=== PATIENT | female | born 1950 | race Caucasian/White ===

== ENCOUNTER 2019-09-11 14:14 | Observation (INO) | payer MEDICARE ==
[2019-09-11] MEDS ORDERED: SODIUM CHLORIDE 0.9% 1000ML 1,000 ML IV ONE ×2 (14:35→15:35)
[2019-09-11] MEDS ORDERED: IPRATROPIUM/ALBUTEROL SULFATE 3 ML SOLUTION IH ONE (14:49)
[2019-09-11 14:54] LABS: BASOPHILS % (AUTO) 0.2 % (0.0-5.0); EOSINOPHILS % (AUTO) 0.1 % (0.0-8.0); HEMATOCRIT 36.8 % (36-48); LYMPHOCYTES % (AUTO) 20.5 % (21.0-51.0); MEAN CORPUSCULAR HEMOGLOBIN 30.9 pg (27.0-33.0); MEAN CORPUSCULAR VOLUME 83.6 fL (79-99); MONOCYTES % (AUTO) 8.2 % (3.0-13.0); NEUTROPHILS % (AUTO) 70.6 % (40.0-77.0); PLATELET COUNT (AUTO) 255 K/uL (130-400); RED CELL DISTRIBUTION WIDTH 11.9 % (11.0-15.5); WHITE BLOOD COUNT (AUTO) 9.8 K/uL (4.8-10.8)
[2019-09-11 15:11] LABS: INR 0.99 (0.85-1.15); PARTIAL THROMBOPLASTIN TIME 29.4 SEC (26.3-35.5); PROTHROMBIN TIME 10.4 SEC (9.6-11.6)
[2019-09-11 15:13] LABS: ALBUMIN 3.3 g/dL (3.5-5.0); CREATININE 0.6 mg/dL (0.5-1.5); POTASSIUM 3.9 mmol/L (3.5-5.1); TOTAL PROTEIN, SERUM 7.3 g/dL (6.0-8.3)
[2019-09-11 15:33] LABS: B-TYPE NATRIURETIC PEPTIDE 75 pg/mL (0-100)
[2019-09-11 15:48] LABS: APPEARANCE,URINE Clear (CLEAR); BILIRUBIN,URINE Negative (NEGATIVE); COLOR,URINE Yellow (YELLOW); GLUCOSE, URINE (UA) Negative (NEGATIVE); KETONES,URINE 40 mg/dL (NEGATIVE); LEUKOCYTE ESTERASE ,URINE Negative (NEGATIVE); NITRATE,URINE Negative (NEGATIVE); OCCULT BLOOD,URINE Negative (NEGATIVE); PH,URINE 6.5 (5.0-8.0); PROTEIN,URINE Negative (NEGATIVE); UROBILINOGEN,URINE 0.2 mg/dL (0.2-1.0)
[2019-09-11] MEDS ORDERED: HYDRALAZINE HCL 20 MG/ML VIAL IV PRN (17:30)
[2019-09-11] MEDS ORDERED: MORPHINE SULFATE 2 MG/ML 1ML SYG IV PRN (17:30)
[2019-09-11] MEDS ORDERED: CEFTRIAXONE SODIUM 1 GM IV SCH (17:30)
[2019-09-11] MEDS ORDERED: ONDANSETRON HCL 4 MG/2 ML VIAL IV PRN (17:30)
[2019-09-11] MEDS ORDERED: ACETAMINOPHEN 325 MG TAB PO PRN ×2 (17:30)
[2019-09-11] MEDS ORDERED: LACTATED RINGERS 1000ML 1,000 ML IV SCH (17:45)
[2019-09-11 17:50] LABS: CREATININE 0.5 mg/dL (0.5-1.5)
[2019-09-11] MEDS ORDERED: CEFTRIAXONE SODIUM 1 GM ONE (17:54)
[2019-09-11] MEDS ORDERED: LACTATED RINGERS 1000ML 1,000 ML IV ONE (17:55)
[2019-09-11 17:58] LABS: ALBUMIN 2.7 g/dL (3.5-5.0); BILIRUBIN,TOTAL 0.8 mg/dL (0.2-1.0); TOTAL PROTEIN, SERUM 6.1 g/dL (6.0-8.3)
[2019-09-11 18:41] LABS: HEMOGLOBIN A1C 5.3 % (4.0-6.0)
[2019-09-11] MEDS: IPRATROPIUM/ALBUTEROL SULFATE 3 ML SOLUTION IH SCH ×2 (19:53→23:44)
[2019-09-11] MEDS ORDERED: BENZONATATE 100 MG CAPSULE PO SCH (21:00)
[2019-09-11] MEDS ORDERED: FAMOTIDINE/PF 20 MG/2 ML VIAL IV ONE (22:51)
[2019-09-12] MEDS ORDERED: LACTATED RINGERS 1000ML 1,000 ML IV ONE (03:55)
[2019-09-12 04:31] LABS: BASOPHILS % (AUTO) 0.3 % (0.0-5.0); EOSINOPHILS % (AUTO) 0.1 % (0.0-8.0); HEMATOCRIT 33.9 % (36-48); LYMPHOCYTES % (AUTO) 26.5 % (21.0-51.0); MEAN CORPUSCULAR HEMOGLOBIN 30.8 pg (27.0-33.0); MEAN CORPUSCULAR VOLUME 85.6 fL (79-99); NEUTROPHILS % (AUTO) 62.7 % (40.0-77.0); PLATELET COUNT (AUTO) 204 K/uL (130-400); RED BLOOD CELL COUNT(AUTO) 3.96 MIL/uL (4.00-5.50); RED CELL DISTRIBUTION WIDTH 11.9 % (11.0-15.5); WHITE BLOOD COUNT (AUTO) 6.7 K/uL (4.8-10.8)
[2019-09-12] MEDS ORDERED: CEFTRIAXONE SODIUM 1 GM ONE (04:36)
[2019-09-12] MEDS ORDERED: BENZONATATE 100 MG CAPSULE PO ONE ×2 (04:36→14:49)
[2019-09-12] MEDS ORDERED: SODIUM CHLORIDE 0.9% 50 ML IV ONE (04:37)
[2019-09-12 04:46] LABS: ALBUMIN 2.7 g/dL (3.5-5.0); BILIRUBIN,TOTAL 0.4 mg/dL (0.2-1.0); CREATININE 0.6 mg/dL (0.5-1.5); POTASSIUM 3.6 mmol/L (3.5-5.1); TOTAL PROTEIN, SERUM 5.8 g/dL (6.0-8.3)
[2019-09-12] MEDS: IPRATROPIUM/ALBUTEROL SULFATE 3 ML SOLUTION IH SCH ×2 (05:30→11:31)
[2019-09-12] MEDS ORDERED: SODIUM CHLORIDE 3% FOR INHALATION 4 ML/AMP VIAL.NEB IH ONE (06:37)
[2019-09-12] MEDS ORDERED: FAMOTIDINE 20MG TAB 20 MG TAB ONE (08:59)
[2019-09-12] MEDS ORDERED: FAMOTIDINE/PF 20 MG/2 ML VIAL IV SCH (09:00)
--- NOTE | 2019-09-12 09:42 | NUR ---
INITIAL SW met with patient. Patient lives alone. Emergency contact is her daughter, Brenna Cartagena, . No home services or DME. Patient is able to complete ADL's independently and drives. PCP is Julian MCDERMOTT. Pharmacy is [facility] located on [address]. DCP is home. Addendum: 09/12/19 at 0944 by LAUREN RANGEL SS Amended: Links added.
[2019-09-12] MEDS ORDERED: IPRA3AMP24 IH (13:50)
[2019-09-12] MEDS ORDERED: BUDE0.5A3 IH (13:50)
[2019-09-12] MEDS ORDERED: NEBU1KIT3 MC (13:50)
[2019-09-12] MEDS ORDERED: PRED20TA3 PO (13:50)
--- NOTE | 2019-09-12 15:17 | NUR ---
[id number] patient signed DEE Letter. I faxed DEE Letter to [id number] and placed in ER chart
[2019-09-14 06:12] LABS: HEPATITIS A ANTIBODY IGM SEE SEPARATE REPORT (Negative); HEPATITIS B CORE IGM SEE SEPARATE RESULT (Negative); HEPATITIS Bs ANTIGEN SCREEN P SEE SEPARATE REPORT (Negative)
== END 2019-09-12 15:53 | disposition home or self-care (01) ==
LOC: EDH 14:14 → EDHIP 17:16 → INTOOBSV 17:16
PROVIDERS: ADMIT Internal Medicine; ATTEND Internal Medicine
DX: J18.9 Pneumonia, unspecified organism (principal); E87.1 Hypo-osmolality and hyponatremia; I10 Essential (primary) hypertension; H40.9 Unspecified glaucoma; E44.1 Mild protein-calorie malnutrition; Z87.891 Personal history of nicotine dependence
CPT/HCPCS: 36415 ×2; 70450; 71045; 80053 ×3; 80074; 81003; 82550; 83036; 83605; 83880; 83930; 83935; 84145; 84443; 84484; 85025 ×2; 85610; 85730; 87040; 87071; 87205; 87804 ×2; 93005; 94640 ×6; 94664; 99285; G0378 ×8; J0696 ×2; J3490; J7030 ×2; J7120 ×2